=== PATIENT | female | born 2000 | race African-American/Black ===

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

== ENCOUNTER 2019-07-01 12:03 | Emergency (ER) | payer SELFPAY ==
[~2019-07-01] VITALS: Ht 162.6 cm; Wt 63.6 kg
[~2019-07-01 12:03] MED LIST: PROGESTERONE PO
[2019-07-01 12:20] VITALS: BP 120/72
[2019-07-01 12:55] LABS: INFLUENZA A PATIENT NEGATIVE (NEGATIVE); INFLUENZA B PATIENT NEGATIVE (NEGATIVE)
--- NOTE | 2019-07-01 14:10 | PHYS DOC ---
Past Medical History Past Medical History: Other Additional Past Medical Histor: ECZEMA Past Surgical History: No Surgical History Alcohol Use: Occasionally Drug Use: None Adult General Chief Complaint Chief Complaint: SORE THROAT HPI HPI Patient is a 18 year old female who presents to the ED today complaining of cough, puffy eyes, sore throat, symptoms for 3 days. Denies any fever. Review of Systems Review of Systems Constitutional: Denies fever or chills [] Eyes: Pupils puffy eyes. Denies change in visual acuity, redness, or eye pain [] HENT: Reports sore throat. Denies nasal congestion Respiratory: Reports cough, denies shortness of breath [] Cardiovascular: No additional information not addressed in HPI [] GI: Denies abdominal pain, nausea, vomiting, bloody stools or diarrhea [] : Denies dysuria or hematuria [] Musculoskeletal: Denies back pain or joint pain [] Integument: Denies rash or skin lesions [] Neurologic: Denies headache, focal weakness or sensory changes [] All other systems were reviewed and found to be within normal limits, except as documented in this note. Allergies Allergies Allergies Coded Allergies Type Severity Reaction Last Updated Verified No Known Drug Allergies 12/28/16 No Physical Exam Physical Exam Constitutional: Well developed, well nourished, no acute distress, non-toxic appearance. [] HENT: Normocephalic, atraumatic, bilateral external ears normal, oropharynx moist, no oral exudates, nose normal. [] Eyes: PERRLA, EOMI, conjunctiva normal, no discharge. [] Neck: Normal range of motion, no tenderness, supple, no stridor. [] Cardiovascular:Heart rate regular rhythm, no murmur [] Lungs & Thorax: Bilateral breath sounds clear to auscultation [] Abdomen: Bowel sounds normal, soft, no tenderness, no masses, no pulsatile masses. [] Skin: Warm, dry, no erythema, no rash. [] Back: No tenderness, no CVA tenderness. [] Extremities: No tenderness, no cyanosis, no clubbing, ROM intact, no edema. [] Neurologic: Alert and oriented X 3, normal motor function, normal sensory function, no focal deficits noted. [] Psychologic: Affect normal, judgement normal, mood normal. [] Current Patient Data Vital Signs Vital Signs Date Time Temp Pulse Resp B/P (MAP) Pulse Ox O2 Delivery O2 Flow Rate FiO2 07/01/19 12:20 98.3 88 14 120/72 (88) 98 Room Air 98.3 Lab Values Laboratory Tests Test 07/01/19 12:20 Influenza Type A Antigen Negative (NEGATIVE) Influenza Type B Antigen Negative (NEGATIVE) Group A Streptococcus Rapid Negative (NEGATIVE) EKG EKG [] Radiology/Procedures Radiology/Procedures [] Course & Med Decision Making Course & Med Decision Making Pertinent Labs and Imaging studies reviewed. (See chart for details) This is a 18-year-old female patient presenting to the ED today with complaints of cough, fevers, and a sore throat for 3 days. Negative rapid strep. Negative influenza A or B. Symptoms could be viral or allergies. OTC medications recommended. Dragon Disclaimer Dragon Disclaimer This electronic medical record was generated, in whole or in part, using a voice recognition dictation system. Departure Departure Impression: Primary Impression: Upper respiratory infection Additional Impressions: Cough Allergies Disposition: HOME, SELF-CARE Condition: STABLE Referrals: NO PCP (PCP) follow up with your doctor in 1 week Patient Instructions: Allergies, Generic, Cough, Adult, [id number], Upper Respiratory Infection, Adult, [id number] Additional Instructions: Please consider taking over the counter medications like Zyrtec or Benadryl for your symptoms. Follow up with your doctor in 1 week Problem Qualifiers Primary Impression: Upper respiratory infection URI type: unspecified URI Qualified Codes: J06.9 - Acute upper respiratory infection, unspecified Additional Impressions: Allergies Encounter type: initial encounter Qualified Codes: T78.40XA - Allergy, unspecified, initial encounter MICHELLE GAVIRIA SERVICE PERSON Jul 01, 2019 14:10
== END 2019-07-01 14:25 | disposition home or self-care (01) ==
LOC: ER 12:03
DX: T78.40XA Allergy, unspecified, initial encounter (principal); J06.9 Acute upper respiratory infection, unspecified; R05 Cough; X58.XXXA Exposure to other specified factors, initial encounter
CPT/HCPCS: 87070; 87804; 87880; 99284